=== PATIENT | male | born 1960 | race Caucasian/White ===

== ENCOUNTER 2018-04-09 10:25 | Inpatient (IN) | payer BC ==
[~2018-04-09 10:25] MED LIST: PROPOFOL 200 MG INJ
[2018-04-09] MEDS ORDERED: GELATIN SIZE 100 SPONGE (13:49)
[2018-04-09] MEDS ORDERED: BUPIVACAINE 0.25% (MPF) 30 ML INJ (13:50)
[2018-04-09] MEDS: LACTATED RINGER'S 1,000 ML IV (13:54)
[2018-04-09] MEDS: CIPROFLOXACIN 400MG/D5W 200 ML IVPB (13:54)
[2018-04-09] MEDS: SOD CHLORIDE 0.9% 1,000 ML IV (13:54)
[2018-04-09] MEDS ORDERED: ROCURONIUM 50 MG INJ (14:55)
[2018-04-09] MEDS ORDERED: PROPOFOL 20 ML (14:55)
[2018-04-09] MEDS ORDERED: SUCCINYLCHOLINE CHLORIDE 100 MG/5 ML SYG IV (14:55)
[2018-04-09] MEDS ORDERED: CLINDAMYCIN 900 MG/D5W (PMX) 50 ML IVPB (14:55)
[2018-04-09] MEDS: THROMBIN 5000 UNIT VIAL (14:59)
[2018-04-09] MEDS: POLYMYXIN/BACITRACIN 1L IRRIG (14:59)
[2018-04-09] MEDS: BUPIVACAINE 0.25%/EPI (MDV) 50 ML VIAL INJ (16:30)
[2018-04-09] MEDS ORDERED: LIDOCAINE 1% (MDV) 20 ML INJ (17:03)
[2018-04-09] MEDS ORDERED: SUGAMMADEX SODIUM 200 MG/2 ML VIAL IV (17:03)
[2018-04-09] MEDS: TRIAMCINOLONE ACET 40 MG/ML INJ (17:09)
[2018-04-09] MEDS ORDERED: HYDROmorphONE 1 MG/5 ML IV SYRINGE IV ×2 (17:30)
[2018-04-09] MEDS ORDERED: FENTAnyl 50 MCG/ML VIAL IV ×3 (17:30)
[2018-04-09] MEDS ORDERED: DEXAMETHASONE 4 MG/ML 1 ML INJ ×2 (18:26→19:28)
[2018-04-09] MEDS ORDERED: HYDROCODONE/APAP (5/325) TAB PO (18:30)
[2018-04-09] MEDS ORDERED: NALOXONE (0.4 MG/ML) INJ IV (18:30)
[2018-04-09] MEDS ORDERED: BETHANECHOL 25 MG TAB PO (18:30)
[2018-04-09] MEDS: HYDROmorphONE 0.2 MG/ML PCA IV (18:37)
[2018-04-09] MEDS: ONDANSETRON 4 MG INJ IV (18:58)
[2018-04-09] MEDS: HYDROmorphONE 1 MG/5 ML IV SYRINGE IV (18:58)
[2018-04-09] MEDS: DIPHENHYDRAMINE 50 MG INJ IV (19:18)
[2018-04-09] MEDS: DEXAMETHASONE 4 MG/ML 1 ML INJ IV (19:51)
[2018-04-09] MEDS: METOCLOPRAMIDE 10 MG INJ IV (19:51)
[2018-04-09] MEDS ORDERED: RACEPINEPHRINE 2.25%(NEB) 0.5 ML AMP (20:31)
[2018-04-09] MEDS: RACEPINEPHRINE 2.25%(NEB) 0.5 ML AMP HHN (20:37)
[2018-04-09] MEDS: DEXTROSE 5%-0.45% NACL 1,000 ML IV (21:43)
[2018-04-09] MEDS: LEVALBUTEROL (NEB) 1.25 MG/0.5 ML AMP HHN (23:56)
[2018-04-10] MEDS: HYDROmorphONE 0.2 MG/ML PCA IV ×2 (02:41→12:53)
[2018-04-10] MEDS: DEXTROSE 5%-0.45% NACL 1,000 ML IV ×3 (04:08→17:10)
[2018-04-10] MEDS: ONDANSETRON 4 MG INJ IV ×2 (07:00→15:33)
[2018-04-10] MEDS: DOCUSATE SODIUM 100 MG CAP PO ×3 (08:32→22:51)
[2018-04-10] MEDS: LEVALBUTEROL (NEB) 1.25 MG/0.5 ML AMP HHN ×3 (09:29→20:09)
[2018-04-10] MEDS: LOSARTAN 50 MG TAB PO (10:30)
[2018-04-10] MEDS: HYDROCHLOROTHIAZIDE 12.5 MG CAP PO (10:30)
[2018-04-10] MEDS: CEPASTAT LOZENGE MT (22:30)
[2018-04-11] MEDS: CEPASTAT LOZENGE MT (03:38)
[2018-04-11] MEDS: DEXTROSE 5%-0.45% NACL 1,000 ML IV ×2 (03:40→10:08)
[2018-04-11] MEDS: LEVALBUTEROL (NEB) 1.25 MG/0.5 ML AMP HHN ×2 (03:59→10:56)
[2018-04-11] MEDS: HYDROmorphONE 0.2 MG/ML PCA IV (04:10)
[2018-04-11 06:11] LABS: ADD MAN DIFF? NO
[2018-04-11 06:21] LABS: BASOPHILS % 0.2 % (0.0-2.0); EOSINOPHILS % 0.1 % (0.0-7.0); HEMATOCRIT 39.2 % (42.0-52.0); HEMOGLOBIN 13.2 g/dl (14.0-18.0); LYMPHOCYTES # 2.5 10^3/ul (0.8-2.9); MEAN CORPUSCULAR HEMOGLOBIN 30.1 pg (29.0-33.0); MEAN CORPUSCULAR HGB CONC 33.7 g/dl (32.0-37.0); MEAN CORPUSCULAR VOLUME 89.5 fl (82.0-101.0); MONOCYTES % 7.7 % (0.0-11.0); NEUTROPHIL # 9.5 10^3/ul (1.6-7.5); NEUTROPHILS % 72.5 % (39.0-77.0); PLATELET COUNT 182 10^3/UL (140-415); RED BLOOD COUNT 4.38 10^6/ul (4.70-6.10); RED CELL DISTRIBUTION WIDTH 13.6 % (11.5-14.5)
[2018-04-11 06:52] LABS: ALANINE AMINOTRANSFERASE 27 IU/L (13-69); ALBUMIN 4.2 g/dl (3.3-4.9); ALBUMIN/GLOBULIN RATIO 1.44; ALKALINE PHOSPHATASE 58 IU/L (42-121); ANION GAP 11 (8-16); ASPARTATE AMINO TRANSFERASE 47 IU/L (15-46); BILIRUBIN,INDIRECT 0.6 mg/dl (0-1.1); BILIRUBIN,TOTAL 0.6 mg/dl (0.2-1.3); CALCIUM 9.1 mg/dl (8.4-10.2); CARBON DIOXIDE 28 mmol/L (21-31); CHLORIDE 107 mmol/L (97-110); CREATININE 0.72 mg/dl (0.61-1.24); GLUCOSE 133 mg/dl (70-220); POTASSIUM 3.6 mmol/L (3.5-5.1); SODIUM 142 mmol/L (135-144); TOTAL PROTEIN 7.1 g/dl (6.1-8.1)
[2018-04-11 08:15] LABS: BLOOD UREA NITROGEN 8 mg/dl (7-20)
[2018-04-11] MEDS ORDERED: NON-FORMULARY/PATIENT OWN MED (Losartan-Hydrochlorothiazide (Losartan-HCTZ) 1 TAB) PO (09:00)
[2018-04-11] MEDS: HYDROCHLOROTHIAZIDE 12.5 MG CAP PO (09:00)
[2018-04-11] MEDS: LOSARTAN 50 MG TAB PO (09:00)
[2018-04-11] MEDS: DOCUSATE SODIUM 100 MG CAP PO (09:22)
[2018-04-11] MEDS: HYDROCODONE/APAP (5/325) TAB PO (09:24)
[2018-04-11] MEDS: ONDANSETRON 4 MG INJ IV (11:52)
== END 2018-04-11 12:13 | disposition home or self-care (01) | DRG 520 ==
LOC: SDS 10:25 → MS1 04-10 10:21 → SDS 10:25 → REC 18:14 → MS1 04-10 20:48 → ICU 21:06
PROC: 0SB40ZZ Excision of Lumbosacral Disc, Open Approach (ICD-10-PCS; principal; 2018-04-09 13:00)
PROC: 0CC Mouth and Throat, Extirpation (ICD-10-PCS; 2018-04-09 14:04)
DX: M51.17 Intervertebral disc disorders with radiculopathy, lumbosacral region (principal); T17.398A Other foreign object in larynx causing other injury, initial encounter; I10 Essential (primary) hypertension; E66.9 Obesity, unspecified; Z68.30 Body mass index [BMI] 30.0-30.9, adult; X58.XXXA Exposure to other specified factors, initial encounter; Y92.238 Other place in hospital as the place of occurrence of the external cause
CPT/HCPCS: 71045; 72100; 80053; 85025; 87081; 94640; 94664; 97116; 97163; 97530